=== PATIENT | male | born 1970 | race Caucasian/White ===

== ENCOUNTER 2021-07-23 12:12 | Outpatient (CLI) | payer OTHER, SELFPAY ==
--- NOTE | 2021-07-23 | ECG_ITS ---
Measurements Intervals [place] Rate: 82 P: 33 ME: 128 QRS: 2 QRSD: 94 T: 40 QT: 391 QTc: 457 Interpretive Statements SINUS RHYTHM POSSIBLE LEFT ATRIAL ENLARGEMENT INCOMPLETE RIGHT BUNDLE BRANCH BLOCK BASELINE ARTIFACT- III, AVF, V5 BORDERLINE ECG Electronically Signed On 07-23-2021 16:05:33 CDT by Tyler Vaz D.O.
== END 2021-07-23 12:13 | disposition home or self-care (01) ==
PROVIDERS: PCP Internal Medicine
DX: R03.0 Elevated blood-pressure reading, without diagnosis of hypertension (principal); I45.10 Unspecified right bundle-branch block
CPT/HCPCS: 93005

== ENCOUNTER 2021-12-15 18:57 | Emergency (ER) | payer OTHER, SELFPAY ==
--- NOTE | ~2021-12-15 | XR_ITS ---
XR shoulder RT min 2V DATE: 12/15/2021 19:28 INDICATION: Right shoulder pain and discomfort. History of rotator cuff surgery in June 2021 TECHNIQUE: 4 views COMPARISON: None FINDINGS: No fracture or dislocation, periosteal reaction or bone destruction. Normal alignment at th e right acromioclavicular joint. There is some widening of the glenohumeral joint space which may be due to capsular laxity. No abnormal soft tissue calcification. IMPRESSION: Widening of right glenohumeral joint space, possibly due to capsular laxity No fracture, dislocation or bone destruction or abnormal soft tissue calcification Reviewed, dictated and finalized at location A. IMPRESSION: Widening of right glenohumeral joint space, possibly due to capsula r laxity No fracture, dislocation or bone destruction or abnormal soft tissue calcificat ion
[2021-12-15 18:59] VITALS: BP 189/110; PULSE 72; RESP 18; TEMP 36.4; O2SAT 100
[2021-12-15] MEDS: KETOROLAC (*BKC) 60 MG/2 ML VIAL IM (19:40)
[2021-12-15] MEDS: CYCLOBENZAPRINE HCL 10 MG TABLET PO (19:41)
--- NOTE | 2021-12-15 20:18 | ED.GENADULT ---
HPI - General Adult General Chief complaint: Recheck/Abnormal Lab/Rx Stated complaint: shoulder pain Time Seen by Provider: 12/15/21 19:08 History of Present Illness HPI narrative: Patient is a 51-year-old male who presents ER with right shoulder pain. Patient has history of shoulder surgery on the right side that was performed by Dr. Yanes. He reports that he has been doing physical therapy and has recently been released to full activity. He has been doing some work in his garage. He finished up and was sitting inside when he started getting increased pain in the right shoulder over the deltoid region. It became more more increased and pronounced right cannot take any longer opted to come in here for further evaluation. No numbness or tingling. No fevers or chills or sweats. No direct trauma to the area. Patient reports he could feel a knot in the area. Related Data Home Medications Medication Instructions Recorded Confirmed atorvastatin PO 07/19/20 08/10/20 fluoxetine PO 07/19/20 08/10/20 lisinopril PO 07/19/20 08/10/20 magnesium oxide PO 07/19/20 08/10/20 Allergies Allergy/AdvReac Type Severity Reaction Status Date / Time No Known Allergies Allergy Verified 12/15/21 18:58 Review of Systems Review of Systems: All systems reviewed & are unremarkable except as noted in HPI and below Constitutional: Constitutional: Denies chills, Denies fever(s) and Denies weakness Cardiovascular: Cardiovascular: Denies chest pain, Denies radiating jaw, neck or arm pain and Denies palpitations Musculoskeletal: Musculoskeletal: Reports arthralgias, Denies joint swelling and Reports muscle cramps Integumentary/Breasts: Skin/Breast: Denies erythema and Denies rash Neurologic: Denies focal weakness and Denies numbness [facility] Past Medical History Medical History (Updated 12/15/21 @ 20:[address] MD) Bursitis of left knee Patellar tendinitis of left knee Surgical History Surgical History (Updated 12/15/21 @ 20:[address] MD) H/O shoulder surgery Right Family History Family History Other Diabetes mellitus Heart disease Social History Social History Alcohol intake: current Alcohol use details: Occasional Exam Narrative: GENERAL: Well-appearing, well-nourished, and in no acute distress. HEAD: Normocephalic, atraumatic. HEART: Regular rate and rhythm. Normal peripheral pulses. EXTREMITIES: Right shoulder without tenderness over the anterior joint line or the acromioclavicular process. No swelling or palpable knot. Patient unable to perform external rotation due to pain. Neurovascular intact distal to the shoulder. SKIN: Warm, dry, no rash. NEURO: No focal deficits. Alert and oriented x3. PSYCH: Normal mood and affect. Course Course Emergency Course: Toradol and Flexeril here. Recommend follow-up with his surgeon or physical therapist or PCP. Recommend continued anti-inflammatories at home and we will prescribe muscle relaxers. Vital Signs Vital signs: Vital Signs Temperature 97.6 F 12/15/21 18:59 Pulse Rate 72 12/15/21 18:59 Respiratory Rate 18 12/15/21 18:59 Blood Pressure 189/110 H 12/15/21 18:59 Pulse Oximetry 100 12/15/21 18:59 Temperature 97.6 F 12/15/21 18:59 Pulse Rate 72 12/15/21 18:59 Respiratory Rate 18 12/15/21 18:59 Blood Pressure 189/110 H 12/15/21 18:59 Pulse Oximetry 100 12/15/21 18:59 Medical Decision Making Vital Signs Vital Signs: Vital Signs Temperature 97.6 F 12/15/21 18:59 Pulse Rate 72 12/15/21 18:59 Respiratory Rate 18 12/15/21 18:59 Blood Pressure 189/110 H 12/15/21 18:59 Pulse Oximetry 100 12/15/21 18:59 Temperature 97.6 F 12/15/21 18:59 Pulse Rate 72 12/15/21 18:59 Respiratory Rate 18 12/15/21 18:59 Blood Pressure 189/110 H 12/15/21 18:59 Pulse Oximetry 10
== END 2021-12-15 20:30 | disposition home or self-care (01) ==
PROVIDERS: Emergency Provider Emergency Medicine; PCP Internal Medicine
DX: R25.2 Cramp and spasm (principal)
CPT/HCPCS: 73030; 96372; 99283; A9270; J1885

== ENCOUNTER 2022-02-11 14:27 | Emergency (ER) | payer OTHER, SELFPAY ==
--- NOTE | ~2022-02-11 | XR_ITS ---
EXAMINATION: XR chest 2V Exam Date/Time: 02/11/2022 17:40 CDT CLINICAL HISTORY: PALPATATIONS-CAN FEEL IN UPPER NECK,SOB,X4 DAYS,HX PVC,HTN Comparison: None available. RESULT: Lines, tubes, and devices: None. Lungs and pleura: Clear. Cardiomediastinal silhouette: Unremarkable cardiomediastinal silhouette. Other: No acute osseous or upper abdominal finding. IMPRESSION: No acute cardiopulmonary process Reviewed, dictated and finalized at location K.
--- NOTE | 2022-02-11 14:29 | ECG_ITS ---
Measurements Intervals [place] Rate: 83 P: 15 NC: 165 QRS: -18 QRSD: 95 T: 6 QT: 383 QTc: 452 Interpretive Statements SINUS RHYTHM ATRIAL AND VENTRICULAR PREMATURE COMPLEXES BORDERLINE T WAVE ABNORMALITY- INFERIOR LEADS BORDERLINE ECG Electronically Signed On 02-11-2022 15:21:38 CDT by Tyler Vaz D.O.
[2022-02-11 14:32] VITALS: BP 135/105; PULSE 79; RESP 18; TEMP 36.4; O2SAT 100
[2022-02-11 17:12] VITALS: BP 165/112; PULSE 62; RESP 15; O2SAT 100
[2022-02-11 17:17] VITALS: BP 156/104
--- NOTE | 2022-02-11 17:20 | ED.ARRPALP ---
HPI - Arrhythmia/Palpitations General Chief Complaint: Arrhythmia/Palpitations <Geovanna Fernandez PA-C - Last Filed: 02/11/22 18:52> Stated Complaint: PALPATATIONS X4D <COLLEEN Acevedo Last Filed: 02/11/22 18:52> Time Seen by Provider: 02/11/22 17:17 <COLLEEN Acevedo Last Filed: 02/11/22 18:52> Source: patient <COLLEEN Acevedo Last Filed: 02/11/22 18:52> Mode of arrival: ambulatory <COLLEEN Acevedo Last Filed: 02/11/22 18:52> Limitations: no limitations <COLLEEN Acevedo Last Filed: 02/11/22 18:52> History of Present Illness HPI narrative: Patient is a 51-year-old male who presents to the ED with report of heart palpitations X 4 days. Patient reports he first developed palpitations on . He he states it is hard to describe the palpitations, sometimes feel like racing, sometimes feel like skipping beats, but he notes he feels the palpitations in his upper chest. He also reports having intermittent increased dyspnea on exertion over the past couple days. He is unsure if this is due to anxiety, but states simple activities will seem to make him more winded. Patient denies any chest pain. Denies any recent cough or cold symptoms, fever, chills, abdominal pain, nausea, vomiting, lightheadedness, dizziness, headaches. He does note having increased stress recently due to his medically complex child. He also notes he typically drinks several 5 hour- energy drinks a day, but has not done this over the weekend. Patient had a history of palpitations 5 to 6 years ago, at which point he saw a exterminator helper at [facility] and was diagnosed with PVCs. He was placed on an [id number] magnesium oxide supplement and still takes this. He has not followed with his exterminator helper in several years. He last had a stress test several years ago as well. <COLLEEN Acevedo Last Filed: 02/11/22 18:52> Related Data Home Medications: Home Medications Medication Instructions Recorded Confirmed atorvastatin PO 07/19/20 08/10/20 fluoxetine PO 07/19/20 08/10/20 lisinopril PO 07/19/20 08/10/20 magnesium oxide PO 07/19/20 08/10/20 <Geovanna Fernandez PA-C - Last Filed: 02/11/22 18:52> Allergies/Adverse Reactions: Allergies Allergy/AdvReac Type Severity Reaction Status Date / Time No Known Allergies Allergy Verified 02/11/22 14:35 <Geovanna Fernandez PA-C - Last Filed: 02/11/22 18:52> Review of Systems Review of Systems: CONSTITUTIONAL: Denies fever, chills, or sweats. ENT: Denies rhinorrhea, congestion, sore throat. CARDIOVASCULAR: Reports palpitations. Denies chest pain or BLE edema. RESPIRATORY: Reports ARMENTA. Denies cough. GASTROINTESTINAL: Denies abdominal pain, nausea, vomiting, or diarrhea. MUSCULOSKELETAL: Denies BLE pain, back pain, joint pain, or myalgia. NEUROLOGIC: Denies headache, numbness, lightheadedness, dizziness, or weakness. <Geovanna Fernandez PA-C - Last Filed: 02/11/22 18:52> All systems reviewed & are unremarkable except as noted in HPI and below <Geovanna Fernandez PA-C - Last Filed: 02/11/22 18:52> [facility] Past Medical History Medical History: Medical History (Updated 02/11/22 @ 18:40 by Geovanna Fernandez PA-C) Bursitis of left knee Hyperlipidemia Hypertension Patellar tendinitis of left knee PVCs (premature ventricular contractions) <Geovanna Fernandez PA-C - Last Filed: 02/11/22 18:52> Surgical History Surgical History: Surgical History H/O shoulder surgery Right <Geovanna Fernandez PA-C - Last Filed: 02/11/22 18:52> Family History Family History: Family History Other Diabetes mellitus Heart disease <Geovanna Fernandez PA-C - Last Filed: 02/11/22 18:52> Social History Social History: Social History Alcohol intake: current Alcohol u
--- NOTE | 2022-02-11 17:41 | PC.NURSE ---
called lab and spoke to Cindy. added on a D dimer and a MG at 1114
[2022-02-11 17:42] LABS: Basophils Percent Auto 0.5 % (0.2-1.2); Eosinophils Absolute Auto 0.1 K/mm3 (0-0.3); Eosinophils Percent Auto 1.4 % (0-4.4); Hematocrit 40.6 % (42.0-52.0); Hemoglobin 13.6 g/dL (14.0-18.0); Immature Granulocyte Absolute 0.02 K/mm3 (0.00-0.031); Immature Granulocyte Percent A 0.3 % (0-0.5); Lymphocytes Absolute Auto 1.63 K/mm3 (0.9-3.2); Lymphocytes Percent Auto 25.5 % (18.3-44.2); Mean Corpuscular HGB Conc 33.5 g/dl (32-36); Mean Corpuscular Hemoglobin 30.2 pg (26-34); Mean Platelet Volume 10.1 fl (7.4-10.4); Monocytes Absolute Auto 0.6 K/mm3 (0.1-0.6); Monocytes Percent Auto 9.9 % (2.6-8.5); Neutrophils Percent Auto 62.4 % (45.5-73.1); Platelet Count Result 242 k/mm3 (150-375); Red Blood Count 4.51 M/mm3 (4.6-6.20); Red Cell Distribution Width 12.9 % (11.5-14.5); White Blood Count 6.4 K/mm3 (4.5-10.0)
[2022-02-11 17:52] LABS: Prothrombin Time 12.9 Seconds (11.1-14.7)
[2022-02-11 17:54] LABS: Alanine Aminotransferase 38 U/L (6-50); Albumin Level 4.8 g/dL (3.5-5.1); Alkaline Phosphatase 55 U/L (38-126); Anion Gap 5 mmol/L (8-16); Aspartate Amino Transferase 36 U/L (17-59); Bilirubin,Total 0.6 mg/dL (0.2-1.3); Blood Urea Nitrogen 19 mg/dL (9-20); Calcium 8.9 mg/dL (8.4-10.2); Carbon Dioxide 29 mmol/L (22-30); Chloride 106 mmol/L (98-107); Estimated CRCL calculation 107 ml/min; Estimated Glomerular Filt Rate > 60; Glucose 86 mg/dL (65-110); Lipase 58 U/L (23-300); Magnesium 2.3 mg/dL (1.6-2.3); Sodium 140 mmol/L (137-145)
[2022-02-11 17:55] LABS: Partial Thromboplastin Time 28.6 SECONDS (22.3-36.8)
[2022-02-11 17:59] LABS: D Dimer 0.28 ug/mL (<0.48)
[2022-02-11 18:11] LABS: Troponin I < 0.012 ng/mL (0.000-0.034)
[2022-02-11 18:53] VITALS: BP 159/114; PULSE 71; RESP 16; O2SAT 96
== END 2022-02-11 18:56 | disposition home or self-care (01) ==
PROVIDERS: Emergency Provider Emergency Medicine; PCP Internal Medicine
DX: R00.2 Palpitations (principal); E78.5 Hyperlipidemia, unspecified; I10 Essential (primary) hypertension; I49.3 Ventricular premature depolarization; I49.1 Atrial premature depolarization; R94.31 Abnormal electrocardiogram [ECG] [EKG]
CPT/HCPCS: 36415; 71046; 80053; 83690; 83735; 84484; 85025; 85380; 85610; 85730; 93005; 99284

== ENCOUNTER 2024-08-09 09:08 | Outpatient (CLI) | payer OTHER, SELFPAY ==
--- NOTE | ~2024-08-09 | XR_ITS ---
3 VIEWS LUMBAR SPINE Ordering provider: Mina Rowland, History: . NO INJURY LBP . Comparison: None. FINDINGS: VERTEBRAL BODIES:Transitional vertebra. No visible fracture or subluxation. DISK SPACES: Narrowing of the disc between the sacrum and the last vertebra. SOFT TISSUES: Normal. IMPRESSION: No acute osseous abnormality lumbar spine. Reviewed, dictated and finalized at location A. MAINTENANCE MANAGER
== END 2024-08-09 09:09 | disposition home or self-care (01) ==
PROVIDERS: PCP Internal Medicine; Visit Provider Internal Medicine
DX: M54.50 Low back pain, unspecified (principal)
CPT/HCPCS: 72100